=== PATIENT | female | born 1960 | race Caucasian/White ===

== ENCOUNTER 2017-03-02 05:36 | Inpatient (IN) | payer MEDICARE, OTHER ==
[2017-02-25 12:03] VITALS: BMI 24.9
[2017-03-02] VITALS (19 sets, daily range): BP systolic 107–144; BP diastolic 59–79; PULSE 61–100; RESP 14–22; Ht 160 cm; Wt 63.4 kg
[~2017-03-02] VITALS: Ht 160 cm; Wt 63.4 kg
[~2017-03-02 05:36] MED LIST: ATOR10TA65 PO; LISI10TA2 PO; MAXZ25 PO
[2017-03-02] MEDS ORDERED: CEFAZOLIN 2 GM/50 ML (PMX) 50 ML IVPB SCH (06:00)
[2017-03-02] MEDS ORDERED: LACTATED RINGER'S 1,000 ML IV* SCH ×2 (06:00)
[2017-03-02] MEDS ORDERED: GELATIN SIZE 100 SPONGE ONE (06:33)
[2017-03-02] MEDS ORDERED: POLYMYXIN/BACITRACIN 1L IRRIG ONE ×2 (06:34→09:26)
[2017-03-02] MEDS ORDERED: THROMBIN 5000 UNIT VIAL ONE (06:34)
[2017-03-02] MEDS ORDERED: BUPIVACAINE 0.25% (MPF) 30 ML INJ ONE (06:34)
--- NOTE | 2017-03-02 06:56 | HPN ---
Date/Time of Note Date/Time of Note DATE: 03/02/17 TIME: 06:56 Interval H&P Admission Note Pt. seen H&P reviewed: No system changes JALEEL STRONG MD Mar 02, 2017 06:56
[2017-03-02] MEDS ORDERED: FAMO20TA18 PO (07:09)
[2017-03-02] MEDS ORDERED: MIDAZOLAM 1 MG/ML 2 ML INJ ONE (07:10)
[2017-03-02] MEDS ORDERED: PHENYLephrine (100 MCG/ML) 5ML SYG ONE (07:22)
[2017-03-02] MEDS ORDERED: INFLUENZA VIRUS VACCINE 0.5 ML SYG IM* ONE (08:00)
[2017-03-02] MEDS ORDERED: morphine 10 MG INJ ONE (08:40)
[2017-03-02] MEDS ORDERED: ONDANSETRON 4 MG INJ ONE ×3 (09:46→10:48)
[2017-03-02] MEDS ORDERED: LIDOCAINE 2% (SDV) 5 ML INJ ONE (09:46)
[2017-03-02] MEDS ORDERED: PROPOFOL 20 ML ONE (09:46)
[2017-03-02] MEDS ORDERED: ROCURONIUM 50 MG INJ ONE (09:46)
[2017-03-02] MEDS ORDERED: HYDROmorphONE 0.2 MG/ML PCA ONE (10:41)
[2017-03-02] MEDS ORDERED: HYDROmorphONE (0.2 MG/ML) 10ML SYG IV ONE ×2 (10:41→10:48)
[2017-03-02] MEDS ORDERED: FENTAnyl 50 MCG/ML VIAL ONE ×2 (10:41→10:48)
--- NOTE | 2017-03-02 10:50 | SIPON ---
Date/Time of Note Date/Time of Note DATE: 03/02/17 TIME: 10:46 Operative Report Preoperative Diagnosis Herniated disc C6-7 on the left Postoperative Diagnosis Same Operation/Procedure Performed Anterior cervical microdiscectomy at C6-7 on the left Anterior cervical interbody arthrodesis C6-7 Left iliac bone graft Internal fixation with RTI plate and screws Cosmetic wound closures (5 cm left cervical 3 cm left iliac AP and lateral cervical radiographs (2 sets) Intraoperative nerve monitoring (3 hours) Surgeon see signature line veterinary technician assistant Taisha PAZA Anesthesia: general Estimated blood loss: 10 - 50 ml's Transfusion Required none Specimen Disc C6-7 Grafts/Implants Left iliac bone RTI cervical plate and screws Complications none JALEEL STRONG MD Mar 02, 2017 10:50
[2017-03-02] MEDS ORDERED: ONDANSETRON 4 MG INJ IV PRN ×2 (11:00)
[2017-03-02] MEDS ORDERED: TRIMETHOBENZAMIDE 100 MG/ML VIAL IM PRN (11:00)
[2017-03-02] MEDS ORDERED: FENTAnyl 50 MCG/ML VIAL IV PRN (11:00)
[2017-03-02] MEDS ORDERED: DIPHENHYDRAMINE 50 MG INJ IV PRN (11:00)
[2017-03-02] MEDS ORDERED: AL HYDROX/MG HYDROX/SIMETH 30 ML CUP PO PRN (11:00)
[2017-03-02] MEDS ORDERED: HYDROmorphONE (0.2 MG/ML) 10ML SYG IV PRN ×2 (11:00)
[2017-03-02] MEDS ORDERED: DIAZEPAM 5 MG TAB PO PRN (11:00)
[2017-03-02] MEDS ORDERED: DIPHENHYDRAMINE 50 MG CAP PO PRN (11:00)
[2017-03-02] MEDS ORDERED: ACETAMINOPHEN 325 MG TAB PO PRN (11:00)
[2017-03-02] MEDS ORDERED: PROCHLORPERAZINE 10 MG TAB PO PRN (11:00)
[2017-03-02] MEDS ORDERED: ZOLPIDEM 5 MG TAB PO PRN (11:00)
[2017-03-02] MEDS ORDERED: NACL 0.9% 3 ML SYG IV SCH (11:00)
[2017-03-02] MEDS ORDERED: MEPERIDINE 25 MG INJ IV PRN (11:00)
[2017-03-02] MEDS ORDERED: BETHANECHOL 25 MG TAB PO PRN (11:00)
[2017-03-02] MEDS ORDERED: NALOXONE (0.4 MG/ML) INJ IV PRN (11:00)
[2017-03-02] MEDS ORDERED: CEPASTAT LOZENGE MT PRN (11:00)
[2017-03-02] MEDS ORDERED: DIAZEPAM 5 MG/ML SYG IM PRN (11:00)
[2017-03-02] MEDS ORDERED: HYDROmorphONE 0.2 MG/ML PCA IV SCH (11:00)
[2017-03-02] MEDS: CEFAZOLIN 1 GM/50 ML (PMX) 50 ML IVPB SCH ×2 (11:35→17:36)
--- NOTE | 2017-03-02 11:54 | OPR ---
DATE OF OPERATION: 03/02/2017 PREOPERATIVE DIAGNOSIS: Herniated disk C6-C7 on the left. POSTOPERATIVE DIAGNOSIS: Herniated disk C6-C7 on the left. OPERATIVE PROCEDURES: 1. Anterior cervical microdiskectomy at C6-7 on the left. 2. Anterior cervical interbody arthrodesis at C6-7 using left iliac bone graft. 3. Internal fixation using RTI plate and screws. 4. Cosmetic wound closures 5 cm left cervical, 3 cm left iliac). 5. AP and lateral cervical radiographs (2 sets). 6. Intraoperative nerve monitoring (3 hours). SURGEON: Dr. Andrews. ENGINEERING TECHNICAL ANALYST: FLAVIO Bryan ANESTHESIA: General endotracheal by Dr. Christiano MD ESTIMATED BLOOD LOSS: 20 mL, none replaced. DRAINS: Two medium Hemovac drains employed in the cervical wound, 2 medium Hemovac drains in the le ft iliac wound. COMPLICATIONS: None. PERTINENT HISTORY AND PHYSICAL: This is a 57-year-old female with persistent neck and upper extremi ty complaints, left greater than right, which have been unrelieved by conservative management. She has undergone a number of diagnostic studies including an MRI of the cervical spine which demonstrat ed herniation of C6-7 disk on the left. Treatment options were discussed with the patient, she elec migue to proceed with surgery. OPERATIVE FINDINGS AT SURGERY: A herniation of C6-7 on the left was confirmed. Baseline intraopera tive nerve monitoring revealed a decrease in the C5 potentials bilaterally of 10%, the C6 potentials bilaterally of 10%, the left C7 potential of 40%, the right C7 potential of 10%. These all returne d to normal at the completion of surgery. OPERATIVE PROCEDURE: With the patient in supine position after satisfactory induction of general en dotracheal anesthesia by Dr. Alvarado, the patient was positioned with a 5-pound sandbag under the lef t buttock and a 3 liter IV bag under the shoulders. The anterior cervical spine and left iliac serjio t areas were prepped and draped in usual sterile fashion. Athrombic pumps were applied to the legs below the knees to prevent venous stasis during and after procedure. An indwelling Maldonado catheter w as also placed preoperatively to facilitate the bladder drainage during and after the procedure. A 5 cm incision was carried out on the anterior aspect of cervical spine approximately 2 fingerbread ths above the left clavicle in line with the left clavicle through skin and subcutaneous tissue to t he platysma fascia. Superficial retractors were placed and hemostasis secured with electrocautery. Throughout the procedure, copious amounts of antibacterial irrigation solution were used to periodi placido irrigate the wound. The platysma fascia was divided transversely and the interval between the sternocleidomastoid and strap muscles was then entered with blunt dissection. The trachea and esop hagus were mobilized to the right and protected with a Cloward hand-held retractor. The peanut elev ator was then used to clear the anterior longitudinal ligament of overlying soft tissues. A 20-gaug e spinal needle was angulated to prevent overpenetration, it was then placed in what was felt to be the C6-7 disk space and a lateral roentgenogram was taken which confirmed anatomic localization. e operating microscope was then moved into place. The longissimus coli muscles were elevated bilate rally with a hot knife and the Cloward self-retaining retractor placed into the wound. The 15 blade knife used to cut a rectangular window in the annulus and anterior longitudinal ligament and multip le degenerative disk fragments were then harvested with pituitary rongeurs and sent to laboratory fo r pathologic study. The Cloward interbody distractors were used to facilitate disk space distractio n. The 0 2-0, 3-0 and 4-0 straight and angulated Eula curettes were then used to remove the nucle ar contents from the disk space. The posterior longitudinal ligament was then taken down in the mid line with a 1 mm Kerrison punch and over to both foramina bilaterally. This decompressed the cord a nd the exiting C7 nerve root. The [place] high-speed eliz bur was then used to abrade the cartil aginous endplates down to subchondral bleeding bone. Attention was then turned to the left iliac crest where a 3 cm incision was then carried out 1 inch proximal and 1 inch lateral to the anterior superior iliac spine in line with the iliac spine throug h skin and subcutaneous tissue to the fascia. The skin was then retracted to the level of the iliac crest and a fascial incision made directly over the iliac crest. A subperiosteal dissection efren d out on the inner and outer table of the left ilium, and a tricortical iliac bone graft was then masters rvested using a small [employer] reciprocating saw and a half inch curved osteotome and mallet . The wound was copiously irrigated solution and hemostasis secured with bone wax on the dono r bone edges. The wound was closed over 2 medium Hemovac drains, one below the fascia and one above the fascia using #1 Vicryl sutures on the fascia, 2-0 Vicryl sutures in subcuticular tissue, and a 4-0 Vicryl subcuticular cosmetic closing suture on the skin. Attention then returned to the cervical spine where the bone plug was carefully trimmed down to appr oximately 6 mm in height and 8 mm in depth and impacted into the C6-7 disk space under direct vision . The Cloward distractors were removed, and the RTI 10 mm Aspect plate was selected and temporarily transfixed to the anterior cervical spine with darts. AP and lateral x-rays were taken, which show ed appropriate positioning of the bone plug on the plate. The 12 mm drill was then used to drill th e 4 holes into C6 and C7 and 12 mm self-tapping screws were then used to secure the plate to the scr ews. They were locked under the wires that secure the screws from backing out. Final AP and latera l x-rays were taken, which confirmed appropriate positioning of the bone plug and the plate and scre ws. Final irrigation of the wound was then carried out with antibacterial irrigating solution and t he wound was then closed over 2 medium Hemovac drains, one below the fascia and one above the fascia using 0 Vicryl sutures to reapproximate the interval between the sternocleidomastoid and strap musc les, 0 Vicryl sutures on the platysma fascia, 2-0 Vicryl sutures on the subcutaneous tissue, and a 4 -0 Vicryl subcuticular cosmetic closing suture on the skin. Dermabond and sterile dressings were ap plied to both incisions and the patient's neck was then immobilized in an [place] collar prior to extu bation by Dr. Alvarado. She was then extubated and transported to recovery room in satisfactory condi tion. At the conclusion of the procedure, sponge, instrument, and needle counts were all correct. NEED FOR CUSTOMER SUCCESS DIRECTOR: During this spinal surgical procedure, my promotions assistant was used to retrac t and protect the spinal nerves and dural sac. My promotions assistant also employed the suction catheters to e vacuate blood from the surgical field to improve visualization of the neural structures. The assista nt was medically necessary to facilitate the completion of the surgery in a safe and expeditious man ner. State of [place] regulations, as well as hospital bylaws, preclude the use of non-licensed [facility] care personnel such as operating room technicians, to perform these functions. Throughout the procedure, neural monitoring was carried out by [employer] including EMG, SSEP and MEP monitoring of the C5, C6, C7 and C8 nerve roots bilaterally along with spinal cord potentials. These were interpreted by a neurologist employed by [employer]. Dictated By: JALEEL ANDREWS MD TM/REDDY Conf#: [id number] DID#: [id number]
--- NOTE | 2017-03-02 12:44 | RADRPT ---
PROCEDURE: Fluoroscopy. CLINICAL INDICATION: Intraoperative fluoroscopic guidance. TECHNIQUE: AP and lateral intraoperative views. Fluoroscopic guidance provided for ACDF procedure. 0.0 fluoroscopy time was used. 6 intraoperative radiographs/cine sequences obtained. COMPARISON: None. FINDINGS: Endotracheal tube in place. The vertebral bodies are normal in height, density, and alignment. Surgi dm marker was placed anteriorly at C6-C7 with progressive placement of anterior fixation plate and screws with near body graft compatible with ACDF of C6-C7. Normal alignment of hardware on the front al view. No evidence of loosening. IMPRESSION: Successful ACDF of C6-C7. RPTAT:AAJJ Physician Janae Date Time Electronically viewed and signed by Physician Janae on 03/02/2017 12:43 EDILBERTO/
[2017-03-02] MEDS: DEXTROSE 5%-0.45% NACL 1,000 ML IV SCH ×2 (13:55→20:42)
--- NOTE | 2017-03-02 18:13 | CONS ---
Date/Time of Note Date/Time of Note DATE: 03/02/17 TIME: 18:04 Assessment/Plan Assessment/Plan Problems: (1) Essential (primary) hypertension Status: Chronic Comment: Continue lisinopril. Monitor blood pressures. Titrate dose to good BP control (2) Hyperlipidemia Status: Chronic Comment: Continue statin (3) Allergic rhinitis Status: Chronic Comment: Try [place] after discharge. (4) Gastro-esophageal reflux disease without esophagitis Status: Chronic Comment: Continue famotidine (5) Cervical disc disorder with radiculopathy of cervical region Status: Resolved Comment: Per primary team (6) Aftercare following surgery of the musculoskeletal system Status: Acute Comment: Doing well postop day #0. Will follow with you and manage any medical issues should they arise. Primary team to monitor pain control and physical therapy. Consultation Date/Type/Reason Admit Date/Time Mar 02, 2017 at 05:36 Date of Consultation: Mar 02, 2017 Type of Consultation: Medicine Reason for Consultation Medical management Referring Provider: JALEEL STRONG MD Hx of Present Illness 57-year-old [place] female with history of allergic rhinitis, hyperlipidemia, hypertension, reflux disease, lumbar disc disease in usual state of health until last 2 years when she developed neck pain and bilateral hand numbness. Has been treated with medications and worked with physical therapy. Did not want epidurals because they were not effective for her lumbar spine. Now planning anterior approach fusion with Dr. Strong which was done today. Patient is now postop day #0 doing well. Constitutional: improved, no complaints Eyes: no complaints ENT: no complaints Respiratory: no complaints Cardiovascular: no complaints Gastrointestinal: no complaints Genitourinary: no complaints Musculoskeletal: back pain, neck pain Neurologic: dizziness Psychological: depression Past Medical History Medical History: GERD, high cholesterol, hypertension, other (Lumbar disc disease, allergic rhinitis) Past Surgical History Past Surgical Hx: other (Lumbar spinal surgery, tubal ligation) Family History Significant Family History: heart disease (Congestive heart failure in father) , diabetes (Sister) Social History Born in [facility], and 7 20 since 1984, former dental assistant hvac mechanic, works as caregiver , single, 3 children Alcohol Use: rarely Smoking Status: Never smoker Drug Use: none Exam/Review of Systems Vital Signs Vitals VS - Last 72 Hours, by Label Date Time Temp Pulse Resp B/P Pulse Ox O2 Delivery O2 Flow Rate FiO2 03/02/17 17:00 16 03/02/17 13:00 16 03/02/17 12:28 96.5 92 18 144/66 100 03/02/17 12:05 Nasal Cannula 2.0 03/02/17 12:00 18 03/02/17 12:00 Nasal Cannula 2.0 03/02/17 11:45 90 15 122/72 99 Nasal Cannula 03/02/17 11:40 82 20 131/72 100 Nasal Cannula 03/02/17 11:35 80 14 127/63 100 Nasal Cannula 03/02/17 11:25 92 15 136/69 100 Nasal Cannula 03/02/17 11:15 88 22 125/76 100 Nasal Cannula 03/02/17 11:05 76 15 118/62 100 Nasal Cannula 03/02/17 10:49 92 15 121/59 100 Mask 03/02/17 10:44 82 15 128/63 100 Mask 03/02/17 10:39 98.0 86 20 123/62 100 Mask 03/02/17 06:45 98.1 68 16 112/79 98 Room Air Vital Signs Date Time Temp Pulse Resp B/P Pulse Ox O2 Delivery O2 Flow Rate FiO2 03/02/17 17:00 16 03/02/17 12:28 96.5 92 144/66 100 03/02/17 12:05 Nasal Cannula 2.0 Intake and Output 03/01/17 03/01/17 03/02/17 15:00 23:00 07:00 Intake Total 0 ml Balance 0 ml Exam Constitutional: alert, oriented, well developed Psych: nl mood/affect, no complaints Eyes: EOMI, PERRL, nl conjunctiva, nl lids, nl sclera ENMT: mucosa pink and moist, nl external ears & nose Neck: other (In c-collar) Respiratory: clear to auscultation, normal air movement Cardiovascular: nl pulses, regular rate and rhythm, No edema, No murmurs/extra sounds, No rub Gastrointestinal: bowel sounds, nl liver, spleen, non-tender, soft, No mass, No rebound or guarding Musculoskeletal: nl extremities to inspection Extremities: normal pulses, No clubbing, No cyanosis, No edema Neurological: DESIZING MACHINE OFFBEARER II-XII intact, nl mental status, nl speech, nl strength Medications Medications Current Medications Lactated Ringer's 1,000 ml @ 20 mls/hr Q24H IV* Last administered on 06:00; Admin Dose 20 MLS/HR; Start 03/02/17 at 06:00; Stop 03/04/17 at 07 :59 Lactated Ringer's 1,000 ml @ 20 mls/hr Q24H IV* ; Start 03/02/17 at 06:00; Stop 03/04/17 at 07:59 Dextrose/Sodium Chloride (D5-1/2ns) 1,000 ml @ 100 mls/hr Q10H IV Last administered on 03/02/17 13:55; Admin Dose 100 MLS/HR; Start 03/02/17 at 10: 42 Acetaminophen/ Hydrocodone Bitart ([place] (5/325)) 1 tab Q4H PRN PO PAIN LEVEL 1 -5; Start 03/03/17 at 11:00 Acetaminophen/ Hydrocodone Bitart 2 tab 2 tab Q4H PRN PO PAIN LEVEL 6-10; Start 03/03/17 at 11:00 Cefazolin Sodium (Ancef 1 Gm/50 ml (Pmx)) 50 ml @ 100 mls/hr Q6 IVPB Last administered on 03/02/17 17:36; Admin Dose 100 MLS/HR; Start 03/02/17 at 12: 00; Stop 03/03/17 at 06:29 Zolpidem Tartrate (Ambien) 5 mg HS PRN PO INSOMNIA; Start 03/02/17 at 11:00 Prochlorperazine (Compazine) 10 mg Q4H PRN PO NAUSEA AND/OR VOMITING; Start at 11:00 Trimethobenzamide HCl (Tigan) 200 mg Q4H PRN IM NAUSEA AND/OR VOMITING; Start 03/02/17 at 11:00 Ondansetron HCl (Zofran Inj) 4 mg Q6H PRN IV NAUSEA AND/OR VOMITING Last administered on 03/02/17 16:12; Admin Dose 4 MG; Start 03/02/17 at 11:00 Al Hydrox/Mg Hydrox/Simethicone (Mag-Al Plus) 15 ml Q4H PRN PO CONSTIPATION; Start 03/02/17 at 11:00 Docusate Sodium (Colace) 100 mg BID PO ; Start 03/03/17 at 09:00 Acetaminophen (Tylenol Tab) 650 mg Q4H PRN PO TEMP GREATER THAN 101F OR FAN; Start 03/02/17 at 11:00 Ascorbic Acid (Vitamin C) 1,000 mg BID PO ; Start 03/03/17 at 09:00 Ferrous Sulfate (Ferrous Sulfate (Ec)) 325 mg TID PO ; Start 03/03/17 at 09:00 Diazepam (Valium) 5 mg Q4H PRN PO MUSCLE SPASMS; Start 03/02/17 at 11:00 Diazepam (Valium) 5 mg Q4H PRN IM MUSCLE SPASMS; Start 03/02/17 at 11:00 Phenol (Cepastat Lozenge) 1 lozenge PRN PRN MT SORE THROAT; Start 03/02/17 at 11:00 Bethanechol Chloride (Urecholine) 25 mg PRN PRN PO UNABLE TO VOID; Start 03/02 at 11:00 Diphenhydramine HCl (Benadryl) 50 mg Q6H PRN PO PRURITUS; Start 03/02/17 at 11 :00 Hydromorphone HCl (Dilaudid AUDOGRAPH OPERATOR) Q4PCA IV Last administered on 03/02/17t 11: 16; Admin Dose 6 MG; Start 03/02/17 at 11:00 Naloxone HCl (Narcan) 0.2 mg Q2M PRN IV RR 8 BREATHS/MIN OR LESS; Start at 11:00 Atorvastatin Calcium (Lipitor) 5 mg QHS PO ; Start 03/02/17 at 21:00 Famotidine (Pepcid) 20 mg DAILY PO ; Start 03/03/17 at 09:00 Lisinopril (Zestril) 10 mg DAILY PO ; Start 03/03/17 at 09:00 Triamterene/HCTZ (Maxzide-25) 1 tab DAILY PO ; Start 03/03/17 at 09:00 KARAN TURPIN MD Mar 02, 2017 18:13
[2017-03-02] MEDS ORDERED: RANITIDINE 150 MG TAB PO SCH (21:00)
[2017-03-02] MEDS ORDERED: ATORVASTATIN 10 MG TAB PO SCH (21:00)
[2017-03-03] MEDS: CEFAZOLIN 1 GM/50 ML (PMX) 50 ML IVPB SCH ×2 (00:07→05:08)
[2017-03-03] MEDS: DEXTROSE 5%-0.45% NACL 1,000 ML IV SCH ×3 (01:09→16:42)
[2017-03-03 01:48] VITALS: BP 103/57; RESP 18
[2017-03-03 05:18] LABS: HEMATOCRIT 36.2 % (37.0-47.0); HEMOGLOBIN 11.9 g/dl (12.0-16.0)
[2017-03-03 06:19] LABS: CALCIUM 8.9 mg/dl (8.4-10.2); CREATININE 0.72 mg/dl (0.44-1.00); POTASSIUM 3.6 mmol/L (3.5-5.1)
--- NOTE | 2017-03-03 07:11 | PN ---
Date/Time of Note Date/Time of Note DATE: 03/03/17 TIME: 07:05 Assessment/Plan Lines/Catheters IV Catheter Type (from Nrs): Saline Lock Maldonado in Place (from Nrsg): Yes Subjective 24 Hr Interval Summary Patient is postop day #1 following anterior cervical microdiscectomy and interbody arthrodesis at C6-7 using left iliac bone graft and internal fixation. She is resting comfortably. He is afebrile. Neuro-vascular structures are intact distally. Her a.m. lab work is unremarkable. Her Hemovac drains had minimal drainage and were both removed. Incisions are clean and dry and were redressed. She will be mobilized as tolerated by physical therapy, and if cleared by physical therapy may be discharged later today. She was given strict discharge precautions and instructions as well as follow-up arrangements. Exam/Review of Systems Vital Signs Vitals Vital Signs Date Time Temp Pulse Resp B/P Pulse Ox O2 Delivery O2 Flow Rate FiO2 03/03/17 01:48 98.6 78 18 103/57 100 03/02/17 21:09 2.0 03/02/17 15:00 Nasal Cannula Intake and Output 03/02/17 03/02/17 03/03/17 15:00 23:00 07:00 Intake Total 1800 ml 1180 ml 2900 ml Output Total 410 ml 1000 ml 3700 ml Balance 1390 ml 180 ml -800 ml Results Result Diagram: 03/03/17 0443 03/03/17 0443 JALEEL STRONG MD Mar 03, 2017 07:11
[2017-03-03] MEDS ORDERED: BETHANECHOL 25 MG TAB PO PRN (08:00)
[2017-03-03 08:02] VITALS: BP 109/58; RESP 19
[2017-03-03] MEDS: FERROUS SULFATE (EC) 325 MG TAB PO SCH ×2 (08:15→13:21)
[2017-03-03] MEDS ORDERED: FAMOTIDINE 20 MG TAB PO SCH (09:00)
[2017-03-03] MEDS ORDERED: TRIAMTERENE/HCTZ (37.5/25) TAB PO SCH (09:00)
[2017-03-03] MEDS ORDERED: DOCUSATE SODIUM 100 MG CAP PO SCH (09:00)
[2017-03-03] MEDS ORDERED: LISINOPRIL 10 MG TAB PO SCH (09:00)
[2017-03-03] MEDS ORDERED: ASCORBIC ACID 500 MG TAB PO SCH (09:00)
[2017-03-03] MEDS ORDERED: HYDROCODONE/APAP (5/325) TAB PO PRN (11:00)
[2017-03-03] MEDS: HYDROCODONE/APAP (5/325) TAB PO PRN ×2 (11:17→15:42)
[2017-03-03 12:09] LABS: ADD UMIC YES; UR ASCORBIC ACID NEGATIVE (NEGATIVE); UR BILIRUBIN (Dip) NEGATIVE (NEGATIVE); UR BLOOD (Dip) 1+ mg/dL (NEGATIVE); UR CLARITY CLEAR (CLEAR); UR COLOR STRAW (YELLOW); UR GLUCOSE (Dip) NEGATIVE (NEGATIVE); UR KETONES (Dip) NEGATIVE (NEGATIVE); UR LEUKOCYTE ESTERASE (Dip) NEGATIVE Leu/ul (NEGATIVE); UR NITRITE (Dip) NEGATIVE (NEGATIVE); UR RBC 1 /HPF (0-5); UR SPECIFIC GRAVITY (Dip) 1.009 (1.003-1.030); UR TOTAL PROTEIN (Dip) NEGATIVE (NEGATIVE); UR UROBILINOGEN (Dip) NEGATIVE (NEGATIVE)
--- NOTE | 2017-03-03 13:52 | CONS ---
Date/Time of Note Date/Time of Note DATE: 03/03/17 TIME: 13:49 Assessment/Plan Assessment/Plan Problems: (1) Essential (primary) hypertension Status: Chronic Comment: BP well controlled. Continue current regimen. (2) Hyperlipidemia Status: Chronic Comment: Continue statin (3) Gastro-esophageal reflux disease without esophagitis Status: Chronic Comment: Continue famotidine (4) Cervical disc disorder with radiculopathy of cervical region Status: Resolved (5) Aftercare following surgery of the musculoskeletal system Status: Acute Comment: Patient doing well on postop day 1. Minor complicating factor of pharyngeal swelling secondary to intubation. However otherwise doing well, pain controlled, patient ambulating with physical therapy Consultation Date/Type/Reason Admit Date/Time Mar 02, 2017 at 05:36 Initial Consult Date 03/02/17 Type of Consultation: Medicine Reason for Consultation Medical management Referring Provider: JALEEL STRONG MD 24 HR Interval Summary Constitutional: improved (Has been up and ambulating with physical therapy), no complaints Detailed Summary ENT: dysphagia (Very painful to try to swallow), sore throat Respiratory: no complaints Cardiovascular: no complaints Gastrointestinal: no complaints Genitourinary: no complaints Musculoskeletal: neck pain Neurologic: no complaints Exam/Review of Systems Vital Signs Vitals VS - Last 72 Hours, by Label Date Time Temp Pulse Resp B/P Pulse Ox O2 Delivery O2 Flow Rate FiO2 03/03/17 09:00 18 03/03/17 08:02 98.7 75 19 109/58 99 03/03/17 01:48 98.6 78 18 103/57 100 03/03/17 00:30 17 03/02/17 21:09 2.0 03/02/17 19:24 98.0 69 18 125/69 99 03/02/17 17:00 16 03/02/17 15:00 98.6 61 16 131/66 100 Nasal Cannula 03/02/17 14:00 98.0 88 16 141/63 98 Nasal Cannula 03/02/17 13:30 97.6 100 16 117/65 98 Nasal Cannula 03/02/17 13:00 16 03/02/17 13:00 97.8 70 14 119/61 99 Nasal Cannula 03/02/17 12:45 98.0 71 16 107/59 100 Nasal Cannula 03/02/17 12:28 96.5 92 18 144/66 100 03/02/17 12:15 97.9 70 16 117/60 100 Nasal Cannula 03/02/17 12:05 Nasal Cannula 2.0 03/02/17 12:00 98.0 72 16 133/64 100 Nasal Cannula 03/02/17 12:00 18 03/02/17 12:00 Nasal Cannula 2.0 03/02/17 11:45 90 15 122/72 99 Nasal Cannula 03/02/17 11:40 82 20 131/72 100 Nasal Cannula 03/02/17 11:35 80 14 127/63 100 Nasal Cannula 03/02/17 11:25 92 15 136/69 100 Nasal Cannula 03/02/17 11:15 88 22 125/76 100 Nasal Cannula 03/02/17 11:05 76 15 118/62 100 Nasal Cannula 03/02/17 10:49 92 15 121/59 100 Mask 03/02/17 10:44 82 15 128/63 100 Mask 03/02/17 10:39 98.0 86 20 123/62 100 Mask 03/02/17 06:45 98.1 68 16 112/79 98 Room Air Vital Signs Date Time Temp Pulse Resp B/P Pulse Ox O2 Delivery O2 Flow Rate FiO2 03/03/17 09:00 18 03/03/17 08:02 98.7 75 109/58 99 03/02/17 21:09 2.0 03/02/17 15:00 Nasal Cannula Intake and Output 03/02/17 03/02/17 03/03/17 15:00 23:00 07:00 Intake Total 1800 ml 1180 ml 2900 ml Output Total 410 ml 1000 ml 3700 ml Balance 1390 ml 180 ml -800 ml Exam Constitutional: alert, oriented, well developed Psych: nl mood/affect, no complaints Neck: other (In c-collar) Respiratory: clear to auscultation, normal air movement Cardiovascular: nl pulses, regular rate and rhythm, No edema, No murmurs/extra sounds, No rub Gastrointestinal: bowel sounds, nl liver, spleen, non-tender, soft, No mass, No rebound or guarding Musculoskeletal: nl extremities to inspection Extremities: normal pulses, No clubbing, No cyanosis, No edema Neurological: [employer] II-XII intact, nl mental status, nl speech, nl strength Results Result Diagram: 03/03/1744203/03/17442 Results 24 hrs Laboratory Tests Test 03/03/17 04:43 03/03/17 10:00 Hemoglobin 11.9 L Hematocrit 36.2 L Sodium Level 140 Potassium Level 3.6 Chloride Level 101 Carbon Dioxide Level 33 H Anion Gap 10 Blood Urea Nitrogen 6 L Creatinine 0.72 Glucose Level 112 Calcium Level 8.9 Urine Color STRAW Urine Clarity CLEAR Urine pH 7.0 Urine Specific [place] 1.009 Urine Ketones NEGATIVE Urine Nitrite NEGATIVE Urine Bilirubin NEGATIVE Urine Urobilinogen NEGATIVE Urine Leukocyte Esterase NEGATIVE Urine Microscopic RBC 1 Urine Microscopic WBC 0 Urine Hemoglobin 1+ H Urine Glucose NEGATIVE Urine Total Protein NEGATIVE Medications Medications Current Medications Lactated Ringer's 1,000 ml @ 20 mls/hr Q24H IV* Last administered on 06:00; Admin Dose 20 MLS/HR; Start 03/02/17 at 06:00; Stop 03/04/17 at 07 :59 Lactated Ringer's 1,000 ml @ 20 mls/hr Q24H IV* ; Start 03/02/17 at 06:00; Stop 03/04/17 at 07:59 Dextrose/Sodium Chloride (D5-1/2ns) 1,000 ml @ 100 mls/hr Q10H IV Last administered on 03/03/17 01:09; Admin Dose 100 MLS/HR; Start 03/02/17 at 10: 42 Acetaminophen/ Hydrocodone Bitart ([place] (5/325)) 1 tab Q4H PRN PO PAIN LEVEL 1 -5 Last administered on 03/03/17 11:17; Admin Dose 1 TAB; Start 03/03/17 at 11:00 Acetaminophen/ Hydrocodone Bitart ([place] (5/325)) 2 tab Q4H PRN PO PAIN LEVEL 6 -10; Start 03/03/17 at 11:00 Zolpidem Tartrate (Ambien) 5 mg HS PRN PO INSOMNIA; Start 03/02/17 at 11:00 Prochlorperazine (Compazine) 10 mg Q4H PRN PO NAUSEA AND/OR VOMITING; Start at 11:00 Trimethobenzamide HCl (Tigan) 200 mg Q4H PRN IM NAUSEA AND/OR VOMITING; Start 03/02/17 at 11:00 Ondansetron HCl (Zofran Inj) 4 mg Q6H PRN IV NAUSEA AND/OR VOMITING Last administered on 03/02/17 16:12; Admin Dose 4 MG; Start 03/02/17 at 11:00 Al Hydrox/Mg Hydrox/Simethicone (Mag-Al Plus) 15 ml Q4H PRN PO CONSTIPATION; Start 03/02/17 at 11:00 Docusate Sodium (Colace) 100 mg BID PO Last administered on 03/03/17 08:14; Admin Dose 100 MG; Start 03/03/17 at 09:00 Acetaminophen (Tylenol Tab) 650 mg Q4H PRN PO TEMP GREATER THAN 101F OR FAN; Start 03/02/17 at 11:00 Ascorbic Acid (Vitamin C) 1,000 mg BID PO Last administered on 03/03/17 08:15 ; Admin Dose 1,000 MG; Start 03/03/17 at 09:00 Ferrous Sulfate (Ferrous Sulfate (Ec)) 325 mg TID PO Last administered on 03/03 13:21; Admin Dose 325 MG; Start 03/03/17 at 09:00 Diazepam (Valium) 5 mg Q4H PRN PO MUSCLE SPASMS; Start 03/02/17 at 11:00 Diazepam (Valium) 5 mg Q4H PRN IM MUSCLE SPASMS; Start 03/02/17 at 11:00 Phenol (Cepastat Lozenge) 1 lozenge PRN PRN MT SORE THROAT; Start 03/02/17 at 11:00 Bethanechol Chloride (Urecholine) 25 mg PRN PRN PO UNABLE TO VOID Last administered on 03/03/17 10:08; Admin Dose 25 MG; Start 03/02/17 at 11:00 Diphenhydramine HCl (Benadryl) 50 mg Q6H PRN PO PRURITUS; Start 03/02/17 at 11 :00 Hydromorphone HCl (Dilaudid OIL FIELD ROUSTABOUT) Q4PCA IV Last administered on 03/02/17 11: 16; Admin Dose 6 MG; Start 03/02/17 at 11:00 Naloxone HCl (Narcan) 0.2 mg Q2M PRN IV RR 8 BREATHS/MIN OR LESS; Start at 11:00 Atorvastatin Calcium (Lipitor) 5 mg QHS PO Last administered on 03/02/17 20: 38; Admin Dose 5 MG; Start 03/02/17 at 21:00 Famotidine (Pepcid) 20 mg DAILY PO Last administered on 03/03/17 08:15; Admin Dose 20 MG; Start 03/03/17 at 09:00 Lisinopril (Zestril) 10 mg DAILY PO Last administered on 03/03/17 08:16; Admin Dose 10 MG; Start 03/03/17 at 09:00 Triamterene/HCTZ (Maxzide-25) 1 tab DAILY PO Last administered on 03/03/17 08 :16; Admin Dose 1 TAB; Start 03/03/17 at 09:00 KARAN TURPIN MD Mar 03, 2017 13:52
[2017-03-03 14:20] VITALS: BP 112/58; RESP 18
--- NOTE | 2017-03-07 09:41 | DS ---
Date/Time of Note Date/Time of Note DATE: 03/07/17 TIME: 09:40 Discharge Summary Admission/Discharge Info Admit Date/Time Mar 02, 2017 at 05:36 Discharge Date/Time Mar 03, 2017 at 19:05 Discharge Diagnosis Herniated disk C6-C7 on the left. Patient Condition: Good Hospital Course Patient did well postoperatively. Pain was well controlled. Her diet and activity were advanced as tolerated. She was cleared for discharge and discharged home in good condition on postop day #1. She was given discharge instructions. Home Meds Reported Medications Famotidine* (Famotidine*) 20 Mg Tablet, 20 MG PO DAILY, #30 TAB 03/02/17 Triamterene/Hctz* (Maxzide (37.5-25)*) 1 Each Tablet, 1 EACH PO DAILY, #30 TAB 02/25/17 Atorvastatin (Atorvastatin) 10 Mg Tablet, 5 MG PO QHS, #30 TAB 02/25/17 Lisinopril* (Lisinopril*) 10 Mg Tablet, 10 MG PO DAILY, #30 TAB 02/25/17 Follow-up Plan Follow-up with Dr. Andrews in 1-2 weeks Primary Care Provider MD MARIELOS Mccain SARLA Mar 07, 2017 09:41
== END 2017-03-03 19:05 | disposition home or self-care (01) | DRG 473 ==
LOC: REC 05:36 → MS1 11:52
PROVIDERS: ADMIT Orthopaedic Surgery; ATTEND Orthopaedic Surgery
PROC: 0RB30ZZ Excision of Cervical Vertebral Disc, Open Approach (ICD-10-PCS; 2017-03-02)
PROC: 0QB30ZZ Excision of Left Pelvic Bone, Open Approach (ICD-10-PCS; 2017-03-02)
PROC: 0RG1070 Fusion of Cervical Vertebral Joint with Autologous Tissue Substitute, Anterior Approach, Anterior Column, Open Approach (ICD-10-PCS; principal; 2017-03-02 07:00)
DX: M50.123 Cervical disc disorder at C6-C7 level with radiculopathy (principal); I10 Essential (primary) hypertension; E78.5 Hyperlipidemia, unspecified; K21.9 Gastro-esophageal reflux disease without esophagitis
CPT/HCPCS: 72050; 80048; 81001; 85014; 85018; 86850; 86900; 86901; 86920; 87086; 88304; 97116; 97162; 97530; J0690; J1170; J2250; J2270; J2370; J2405; J3010; J7042; J7120